=== PATIENT | female | born 1995 | race Caucasian/White ===

== ENCOUNTER 2017-11-30 09:15 | Emergency (ER) | payer OTHER ==
[~2017-11-30] VITALS: Ht 157.5 cm; Wt 104.3 kg
[~2017-11-30 09:15] MED LIST: ADIPEX-P37.5 MG
== END 2017-11-30 13:58 | disposition home or self-care (01) ==
LOC: ER 09:15
DX: J35.01 Chronic tonsillitis (principal)

== ENCOUNTER 2017-12-02 19:00 | Emergency (ER) | payer OTHER ==
[~2017-12-02] VITALS: Ht 157.5 cm; Wt 104.3 kg
== END 2017-12-02 20:03 | disposition home or self-care (01) ==
LOC: ER 19:00
DX: J31.2 Chronic pharyngitis (principal)